=== PATIENT | female | born 1950 | race Hispanic/Latino ===

== ENCOUNTER → 2019-07-07 | Outpatient (CLI) | payer OTHER ==
[~2019-07-07] MED LIST: CALC-322 PO; FLUT16H NASAL; IOHEXOL 350 MG/ML 100ML INFUS..BTL IV ONE; IOHEXOL-350 75 ML VIAL IV ONE; LORA10CA9 PO; MECL12.585 PO; MONT10TA24 PO; NAPR220C15 PO; OMEG100T PO
== END | disposition home or self-care (01) ==
LOC: RAH 07:59
PROVIDERS: ATTEND Family Medicine
DX: K57.30 Diverticulosis of large intestine without perforation or abscess without bleeding (principal); I70.0 Atherosclerosis of aorta
CPT/HCPCS: 73706; Q9967 ×2

== ENCOUNTER 2020-11-19 05:39 | Day surgery (SDC) | payer OTHER ==
[~2020-11-19 05:39] MED LIST changes: -IOHEXOL 350 MG/ML 100ML INFUS..BTL IV ONE; -IOHEXOL-350 75 ML VIAL IV ONE; +MECL-226 PO; -MECL12.585 PO; -MONT10TA24 PO; +MONT10TA32 PO
[2020-11-19 06:10] VITALS: BP 159/59
[2020-11-19] MEDS ORDERED: SODIUM CHLORIDE 0.9% 1000ML 1,000 ML IV ONE (06:11)
[2020-11-19] MEDS ORDERED: PANT40TA54 PO (06:38)
[2020-11-19] MEDS ORDERED: LISI10TA24 PO (06:38)
[2020-11-19] MEDS ORDERED: ONDA4TAB10 PO (06:38)
[2020-11-19] MEDS ORDERED: L.AC1CAP6 PO (06:38)
[2020-11-19] MEDS ORDERED: PROPOFOL 10 MG/ML 20ML VIAL IV ONE ×2 (07:42→07:52)
[2020-11-19] MEDS ORDERED: LIDOCAINE HCL 1% 20 ML VIAL ONE (07:42)
[2020-11-19] MEDS ORDERED: GLUCAGON 1MG KIT 1 MG ML ONE (07:47)
[2020-11-19] MEDS ORDERED: EPINEPHRINE 1 MG/ML AMPULE ONE (07:47)
[2020-11-19 08:10] VITALS: BP 133/48
[2020-11-19 08:15] VITALS: BP 138/57
[2020-11-19 08:20] VITALS: BP 146/73
[2020-11-19 08:25] VITALS: BP 148/66
== END 2020-11-19 08:35 | disposition home or self-care (01) ==
LOC: DAH 05:39 → ENDO 05:39
PROVIDERS: ATTEND Internal Medicine
DX: K31.89 Other diseases of stomach and duodenum (principal); Z20.822 Contact with and (suspected) exposure to COVID-19; K31.7 Polyp of stomach and duodenum; I10 Essential (primary) hypertension; D64.9 Anemia, unspecified; M19.90 Unspecified osteoarthritis, unspecified site; Z98.890 Other specified postprocedural states; Z90.49 Acquired absence of other specified parts of digestive tract; Z90.710 Acquired absence of both cervix and uterus; Z86.010 Personal history of colon polyps; Z86.19 Personal history of other infectious and parasitic diseases
CPT/HCPCS: 43236; 43251; 93005; A4215 ×2; A4216; A4221; A4222; A4223; A4606; A4620; A4657; A4663; C9803; J0171; J1610; J2704 ×2; J7030; U0003; 43255

== ENCOUNTER 2021-02-18 06:43 | Day surgery (SDC) | payer OTHER ==
[~2021-02-18] VITALS: Ht 152.4 cm; Wt 82.6 kg
[~2021-02-18 06:43] MED LIST changes: +0.9%NACL 1000ML 1,000 ML IV ONE; -FLUT16H NASAL; +L.AC1CAP6 PO; +LISI10TA24 PO; -LORA10CA9 PO; -MONT10TA32 PO; -NAPR220C15 PO; -OMEG100T PO; +ONDA4TAB10 PO; +PANT40TA54 PO
[2021-02-18 08:20] VITALS: BP 156/57
[2021-02-18] MEDS ORDERED: FLUT16H NASAL (08:22)
[2021-02-18] MEDS ORDERED: LEVO5TAB13 PO (08:22)
[2021-02-18] MEDS ORDERED: PROPOFOL 10 MG/ML 20ML VIAL IV ONE (10:11)
[2021-02-18 10:25] VITALS: BP_SYST 129; BP_SYST 145; BP_DIAS 50; BP_DIAS 53
== END 2021-02-18 11:00 | disposition home or self-care (01) ==
LOC: ENDO 06:43 → DAH 06:43 → ENDO 11:00
PROVIDERS: ATTEND Internal Medicine
DX: K31.7 Polyp of stomach and duodenum (principal); K31.89 Other diseases of stomach and duodenum; B96.81 Helicobacter pylori [H. pylori] as the cause of diseases classified elsewhere; K29.70 Gastritis, unspecified, without bleeding; Z20.822 Contact with and (suspected) exposure to COVID-19
CPT/HCPCS: 43239; 87635; 88305; 88342; A4215 ×2; A4221; A4222; A4223; A4606; A4620; A4657; A4663; C9803; J2704; J7030

== ENCOUNTER → 2022-05-19 | Outpatient (CLI) | payer OTHER ==
[~2022-05-19] MED LIST changes: -0.9%NACL 1000ML 1,000 ML IV ONE; -CALC-322 PO; +FLUT16H NASAL; -L.AC1CAP6 PO; +LEVO5TAB13 PO; -MECL-226 PO; -ONDA4TAB10 PO
== END | disposition home or self-care (01) ==
LOC: RAH 10:10
PROVIDERS: ATTEND Internal Medicine Gastroenterology
DX: K30 Functional dyspepsia (principal); R14.0 Abdominal distension (gaseous)
CPT/HCPCS: 78264; A9541